=== PATIENT | male | born 2000 | race Two or more races ===

== ENCOUNTER 2024-11-15 08:27 | Outpatient (RCR) | payer MEDICAID, SELFPAY ==
--- NOTE | 2024-11-15 09:05 | PT.OIERPT ---
PT OP Initial Eval Patient Information Outpatient Physical Therapy Treatment Date: 11/15/24 Visit Reasons: Pain in RT shoulder Medical Diagnosis: M75.81 Start of Care: 11/15/24 Date of Onset: 1 yr ago Smoking Status Smoking Status: Never smoker Initial Assessment Subjective: Pt is 24 yr old sami speaking male who reports R shoulder pain x1 yr. Increased pain with sleeping on that side and it pops with pain with some movements. 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 PMH: none reported Imaging: none of R shoulder Pt goal: to get rid of the pain Objective: R shoulder AROM: FF: full Abduction: full ER: full HBB: full Borden yuni: positive Love's: positive Axial grind: positive for popping with ER/IR in supine Assessment: Pt presents with full ROM of R shoulder with popping consistent with labral irritation/tear. He has good bicep strength and doesn't seem to have biceps tendinopathy. He is not likely going to benefit from therapy to meet goals and rehab potential is poor but we will try some trial visits to learn HEP and see if he feels relief. PT recommends further diagnostic imaging of R shoulder such as Xray, MRI. Short Term and Outreach Assistant Goals 1. Ind with HEP 2. Pt will sleep on R side with <=3/10 pain Treatment Plan ?1. Manual therapy ? 2. Therex ? 3. Modalities as indicated, moist heat, ice, estim Frequency and Duration: 1-2x a week for 3 trial visits, if progressing continue to 8 visits Certification Dates: 11/15/24 to 01/14/25 Procedure Charges OP PT Eval Mod Complex 30 minutes: Yes
== END 2024-11-16 23:59 | disposition home or self-care (01) ==
LOC: CPTX 08:27
PROVIDERS: PCP Family Medicine; Referring Provider Family Medicine; Visit Provider Family Medicine
DX: M25.511 Pain in right shoulder (principal); M75.81 Other shoulder lesions, right shoulder
CPT/HCPCS: 97162

== ENCOUNTER 2024-11-27 16:00 | Outpatient (RCR) | payer MEDICAID, SELFPAY ==
--- NOTE | 2024-11-23 18:33 | PT.ODAYNRPT ---
PT Outpatient Daily Note OP Daily Note Outpatient Physical Therapy Treatment Date: 11/23/24 Visit Reasons: Pain in RT shoulder Subjective: Same as evaluation Objective: See f/S for therex Assessment: Low pain of R shoulder with therex but pain with push up position Plan: Continue per POC Length of Time (minutes) of Treatment: 30 Minutes Procedure Charges Therapeutic Exercise 30 minutes: Yes
--- NOTE | 2024-11-27 17:54 | PT.ODAYNRPT ---
PT Outpatient Daily Note OP Daily Note Outpatient Physical Therapy Treatment Date: 11/27/24 Visit Reasons: Pain in RT shoulder Subjective: Pt reports a bruise above the armpit attributed to the wand last visit Objective: See f/S for therex Assessment: Low pain of R shoulder with therex today. Plan: Continue per POC Length of Time (minutes) of Treatment: 30 Minutes Procedure Charges Therapeutic Exercise 30 minutes: Yes
== END 2024-12-17 23:59 | disposition home or self-care (01) ==
LOC: CPTX 16:00
PROVIDERS: PCP Family Medicine; Referring Provider Family Medicine; Visit Provider Family Medicine
DX: M25.511 Pain in right shoulder (principal); M75.81 Other shoulder lesions, right shoulder
CPT/HCPCS: 97110